=== PATIENT | male | born 1995 | race African-American/Black ===

== ENCOUNTER 2020-08-25 17:13 | Observation (INO) | payer OTHER ==
[~2020-08-25] VITALS: Ht 185.4 cm; Wt 90.7 kg
[2020-08-25 17:26] VITALS: BP 130/75
[2020-08-25 18:48] LABS: HEMATOCRIT 44.7 % (42.0-52.0); HEMOGLOBIN 15.2 gm/dL (14.0-18.0); MCH 30.2 pg (26.0-34.0); MCV 88.7 fL (80.0-100.0); MPV 10.3 fl. (7.2-11.1); NUCLEATED RBCS 0 /100WBC; PLATELET COUNT* 184 thou/uL (150-400); RBC 5.04 mil/uL (4.50-6.00); RDW-CV 12.5 % (10.5-14.5)
[2020-08-25 18:58] LABS: CREATININE 1.3 mg/dL (0.6-1.3); POTASSIUM 3.3 mmol/L (3.5-5.1)
[2020-08-25 19:02] LABS: ALBUMIN 4.6 g/dL (3.4-5.0); TOTAL BILIRUBIN 0.5 mg/dL (<0.1-1.0); TOTAL PROTEIN 8.4 g/dL (6.4-8.2)
[2020-08-25 19:15] LABS: ABSOLUTE BASOPHILS 0.1 thou/uL (0.0-0.2); ABSOLUTE LYMPHOCYTES 1.7 thou/uL (0.8-5.3); ABSOLUTE MONOCYTES 0.4 thou/uL (0.0-1.2); ABSOLUTE NEUTROPHILS 11.8 thou/uL (1.6-8.1); ATYPICAL LYMPHS 5 %
[2020-08-25 19:16] LABS: PLATELET ESTIMATE ADEQUATE
[2020-08-25 21:17] LABS: URINE BILIRUBIN NEGATIVE (Negative); URINE BLOOD NEGATIVE (Negative); URINE CLARITY CLEAR; URINE COLOR YELLOW; URINE GLUCOSE-RANDOM NEGATIVE (Negative); URINE KETONES 2+ (Negative); URINE LEUKOCYTES-REFLEX NEGATIVE (Negative); URINE NITRITE-REFLEX NEGATIVE (Negative); URINE PROTEIN NEGATIVE (Negative); URINE SPECIFIC GRAVITY 1.015 (1.005-1.030); URINE UROBILINOGEN 0.2 E.U./dl (0.2-1.0)
[2020-08-25 22:19] VITALS: BP 136/77
[2020-08-25 22:30] VITALS: BP 117/76
--- NOTE | 2020-08-26 04:35 | NUR ---
PATIENT C/O ABD PAIN SINCE FRIDAY AM; RATES PAIN 10/10. PAIN MEDICATION GIVEN IN ER AND AFTER ADMISSION WAS COMPLETE. PT SLEPT WELL UNTIL PUMP BEEPED THEN WOKE UP AND NEEDED MORE PAIN MEDS. PT VOIDS YELLOW URINE PER URINAL. FLUIDS INFUSING PER DR ORDER. PT HAS BEEN NPO SINCE ADMISSION FOR SURGERY THIS AM. PT ORIENTED TO ROOM/POLICIES AND VERBALIZES UNDERSTANDING. FREQUENTLY USED ITEMS AND CALL LIGHT WITHIN REACH. WILL CONTINUE TO MONITOR.
[2020-08-26 08:00] VITALS: BP 106/45
--- NOTE | 2020-08-26 11:58 | NUR ---
to surgery at this time with rn via w/c.
[2020-08-26 14:30] VITALS: BP 121/62
--- NOTE | 2020-08-26 14:30 | NUR ---
PT TRANSFERED FROM PACU BACK TO ROOM 307 VIA BED. POST SURGERY. 3 STAB WOUNDS TO ABD INTACT WITH TRASPARTENT DRESSING. DRESSING ARE ALL C, D & I. NO C/O PAIN AT THIS TIME. WILL CONTINUE TO MONITOR. CALF SCD'S ON [place]ERICA LEGS. IV RIGHT AC SALINE LOCKED.
[2020-08-26 15:48] VITALS: BP 121/62
[2020-08-26 16:00] VITALS: BP 115/52
[2020-08-26 17:24] VITALS: BP 121/62
--- NOTE | 2020-08-26 17:25 | NUR ---
IV DC'D WITH CATH CANNULA INTACT. PRESSURE APPLIED UNTIL BLEEDING CEASED AND COTTON BALL AND TAPE APPLIED. DISCHARGED HOME, TAKEN OUT BY W/C. BROTHER DROVE HIM HOME VIA CAR. PT VERBALIZED UNDERSTANDING TO ALL DISCHARGE INSTRUCTIONS AND FOLLOW UP VISITS.
--- NOTE | 2020-08-28 12:35 | OP ---
[address] [address] OPERATIVE REPORT Name: JOHNSON MORRIS Room: [address] [place]#: [id number] Admission: 08/25/20 Attend Phys: Mandy Godinez MD Discharge: 08/26/20 Date of : 89 Report #: [id number] THIS REPORT FOR: //name// cc: [facility] - No family physician/PCP [facility] - No family physician/PCP ~ CC: [facility] physician/PCP Mandy Godinez DATE OF SERVICE: 08/26/2020 PREOPERATIVE DIAGNOSIS: Acute appendicitis. POSTOPERATIVE DIAGNOSIS: Acute appendicitis. OPERATION: Laparoscopic appendectomy. SURGEON: David Arriaza MD ANESTHESIA: General. ESTIMATED BLOOD LOSS: Minimal. SPECIMEN: Appendix. DESCRIPTION OF PROCEDURE: After informed consent was obtained, the patient was brought to the operating room and placed supine. SCDs were placed and working, preoperative antibiotics were administered, general anesthesia was induced. The abdomen was prepped and draped in the usual sterile fashion. A 10 mm incision was made below the umbilicus. Fascia was incised and a trocar was placed. Right upper quadrant and left lower quadrant 5 mm trocars were placed. The appendix was visualized in the right lower quadrant. It was grasped and retracted anteriorly. A window was made in the mesoappendix. The mesoappendix was ligated with a ELICIA hernandez load stapler. The base of the appendix was then stapled off with a ELICIA blue load stapler. Appendix was placed into an Endopouch and removed. The fascia was then closed with a [id number] 0 Vicryl. Skin was closed with 4-0 Monocryl. Incisions were sealed with Dermabond. COMPLICATIONS: None. DISPOSITION: The patient was taken to recovery in satisfactory condition. <ELECTRONICALLY SIGNED> By: David Arriaza MD 08/28/20 1235 1345 [id number] Arriaza MD /nt
--- NOTE | 2020-08-30 14:07 | PATH ---
[address] [address] PATHOLOGY RPT PROCEDURE Name: JOHNSON MORRIS Room: [address] [place]#: [id number] Admission: 08/25/20 Date of : [birth year] Discharge: 08/26/20 Report #: [id number] Path Case #: [id number] [facility] Accession Number: [id number] . 01 Material submitted: . appendix - APPENDIX . 01 Clinical history: . Appendicitis . . 02 Diagnosis: Appendix: - Acute appendicitis, periappendicitis and serositis. . (LUDY:mml; 08/30/2020) [facility] 08/30/2020 1030 Local . 02 Electronically signed: . Bacilio Youngblood MD, Pathologist NPI- [id number] . 01 Gross description: . The specimen is received in formalin, labeled "Johnson Andree, appendix". Received is a vermiform appendix measuring 7.7 cm in length by up to 0.9 cm in diameter with a small amount of attached mesoappendix. The serosal surface is pink-mancera in appearance with a slight amount of overlying adhesions, as well as moderate vasculature. The surgical margin is closed with a line of holli. The holli are removed and the new margin is inked black. Sectioning reveals a patent lumen filled with fecal material. The specimen is submitted representatively in cassettes A1 and A2, with the proximal margin and bisected tip submitted in cassette A1. (CAA; 08/29/2020) QAC/QAC 08/30/2020 1029 Local . 02 Pathologist provided ICD-10: K35.80, K65.8 . 02 CPT . 645338 Specimen Comment: A courtesy copy of this report has been sent to [phone] Specimen Comment: Report sent to / DR ROYAL Performed at: [address] [id number] MD Mau Sanchez MD Phone: [phone] Performed at: 02 [place] [address] PATHOLOGY RPT PROCEDURE Name: JOHNSON MORRIS Room: [address] [place]#: [id number] Admission: 08/25/20 Date of : [birth year] Discharge: 08/26/20 Report #: [id number] Path Case #: [id number] [address], [place] [id number] MD Bacilio Youngblood MD Phone: [phone]
== END 2020-08-26 17:25 | disposition home or self-care (01) ==
LOC: M.ERS 17:13 → M.TBA-ER 20:37 → M.3W 22:50
PROVIDERS: Physician Assistant; ADMIT Surgery; ATTEND Surgery
DX: K35.80 Unspecified acute appendicitis (principal); Z79.899 Other long term (current) drug therapy; Z20.828 Contact with and (suspected) exposure to other viral communicable diseases